=== PATIENT | male | born 1985 | race Caucasian/White ===

== ENCOUNTER 2020-04-18 12:35 | Emergency (ER) | payer OTHER ==
[~2020-04-18] VITALS: Ht 172.7 cm; Wt 90.7 kg
[2020-04-18] MEDS ORDERED: NAPROSYN500 MG PO (13:52)
[2020-04-18 14:18] VITALS: BP 149/91
== END 2020-04-18 14:19 | disposition home or self-care (01) ==
LOC: ER 12:35
DX: S00.81XA Abrasion of other part of head, initial encounter (principal); S80.812A Abrasion, left lower leg, initial encounter; M54.2 Cervicalgia; V49.88XA Car occupant (driver) (passenger) injured in other specified transport accidents, initial encounter; Y93.89 Activity, other specified; Y92.413 State road as the place of occurrence of the external cause; Y99.9 Unspecified external cause status